=== PATIENT | male | born 1955 | race Caucasian/White ===

== ENCOUNTER 2019-02-04 09:08 | Emergency (ER) | payer OTHER ==
[2019-02-04] MEDS ORDERED: ONDANSETRON 4 MG/2 ML VIAL ONE (09:43)
[2019-02-04] MEDS ORDERED: MORPHINE 4 MG/ML SYR ONE (09:43)
[2019-02-04 09:46] LABS: Absolute Lymphocytes (CBC) 1.4 K/uL (0.7-4.9); Basophils % 0.3 % (0-1.3); Hematocrit 46.5 % (39.6-49.0); Lymphocytes % 17.8 % (15.3-44.8); RBC Red Blood Cell Count 5.19 M/uL (4.33-5.43)
[2019-02-04 10:03] LABS: BUN Blood Urea Nitrogen 14 mg/dL (7-18); Bicarbonate 24 mmol/L (21-32); Glucose Level 118 mg/dL (74-106); Potassium 3.6 mmol/L (3.5-5.1); Sodium Level 140 mmol/L (136-145)
[2019-02-04 10:39] LABS: Urine Blood 3+ (NEG); Urine Glucose NEGATIVE (NEG); Urine Protein 2+ (NEG); Urine Specific Gravity 1.025 (1.005-1.030)
--- NOTE | 2019-02-04 10:58 | RAD REPORT ---
EXAM DESCRIPTION: RAD - Abdomen 1 View (KUB) - 02/04/2019 10:47 am CLINICAL HISTORY: CONSTIPATION Pain COMPARISON: No comparisons FINDINGS: The bowel gas pattern is non-obstructive. No evidence of free air or pneumatosis. No suspi cious calcifications. No significant bony findings. Moderate fecal retention in the colon. IMPRESSION: Moderate constipation.
[2019-02-04] MEDS ORDERED: MAGNESIUM CITRATE 300 ML BOT ONE (11:00)
[2019-02-04 11:05] LABS: Urine Bacteria 20-50 /HPF (NONE SEEN); Urine Culture Reflex Order REFLEXED; Urine RBC 20-50 /HPF (NONE SEEN)
--- NOTE | 2019-02-04 11:15 | ER ---
Nurse's Notes [facility] Name: Salvatore Nguyễn Age: 63 yrs Sex: Male : 1955 Arrival Date: 02/04/2019 Time: 09:11 Bed 14 Private MD: Atla Thompson H Diagnosis: Urinary tract infection, site not specified;Constipation, unspecified Presentation: 02/04 09:26 Presenting complaint: Patient states: bladder/penile pain, feels like I need to urinate ch but I am urinating. bloody spots in urine. sx on bladder Thursday after having bladder Biopsys. Coto in place since Thursday. Transition of care: patient was not received from another setting of care. Onset of symptoms was February 01, 2019. Risk Assessment: Do you want to hurt yourself or someone else? Patient reports no desire to harm self or others. Initial Sepsis Screen: Does the patient meet any 2 criteria? No. Patient's initial sepsis screen is negative. Does the patient have a suspected source of infection? No. Patient's initial sepsis screen is negative. Care prior to arrival: None. 09:26 Method Of Arrival: Ambulatory 09: Acuity: DALE 3 ch Triage Assessment: :29 General: Appears in no apparent distress. uncomfortable, Behavior is anxious, restless. Pain: Complains of pain in groin and suprapubic area Pain currently is 8 out of 10 on a pain scale. Pain began suddenly. Neuro: Level of Consciousness is awake, alert, obeys commands, Oriented to person, place, time, situation. Respiratory: No deficits noted. Airway is patent Respiratory effort is even, unlabored. Historical: - Allergies: 09: NSAIDS; ch 09: Levaquin; 09:29 floroquinolones; ch - Home Meds: 10: Fioricet Oral [Active]; ch - PMHx: 10: Migraines; ch - PSHx: : Appendectomy; sinus; elbow; ch - Immunization history:: Adult Immunizations up to date. - Social history:: Smoking status: Patient/guardian denies using tobacco. - Ebola Screening: : Patient negative for fever greater than or equal to 101.5 degrees Fahrenheit, and additional compatible Ebola Virus Disease symptoms Patient denies exposure to infectious person Patient denies travel to an Ebola-affected area in the 21 days before illness onset No symptoms or risks identified at this time. Screenin:55 Abuse screen: Denies threats or abuse. Denies injuries from another. Nutritional ch screening: No deficits noted. Tuberculosis screening: No symptoms or risk factors identified. Fall Risk None identified. Assessment: 09:55 General: Appears in no apparent distress. uncomfortable, ill, Behavior is cooperative, ch appropriate for age, anxious, restless. Pain: Complains of pain in suprapubic area and groin Pain currently is 4 out of 10 on a pain scale. Neuro: No deficits noted. Respiratory: No deficits noted. Airway is patent Trachea midline Respiratory effort is even, unlabored. GI: No signs and/or symptoms were reported involving the gastrointestinal system. : 3-way catheter in place to gravity drainage Urine is clear, pt urine is green Genitalia appear normal pt has tenderness to bladder area. Derm: Skin is pink, warm \T\ dry. Musculoskeletal: No signs and/or symptoms reported regarding the musculoskeletal system. 10:32 Reassessment: Patient appears in no apparent distress at this time. Patient and/or family updated on plan of care and expected duration. Pain level reassessed. Patient is alert, oriented x 3, equal unlabored respirations, skin warm/dry/pink. Patient states feeling better. Patient states symptoms have improved. 11:31 Reassessment: Patient appears in no apparent distress at this time. No changes from previously documented assessment. Patient and/or family updated on plan of care and expected duration. Pain level reassessed. Patient is alert, oriented x 3, equal unlabored respirations, skin warm/dry/pink. Vital Signs: 09:29 BP 162 / 102; Pulse 84; Resp 18; Temp 98.4(O); Pulse Ox 99% on R/A; Weight 77.11 kg; Height 5 ft. 10 in. (177.80 cm); Pain 8/10; 10:32 BP 172 / 104; Pulse 75; Resp 16; Pulse Ox 100% on R/A; Pain 4/10; ch 11:15 BP 139 / 93; Pulse 72; Resp 18; Pulse Ox 100% on R/A; Pain 4/10; ch 11:39 BP 141 / 88; Pulse 75; Resp 18; Temp 98.8; Pulse Ox 99% on R/A; Pain 4/10; ch 09:29 Body Mass Index 24.39 (77.11 kg, 177.80 cm) ED Course: 09:11 Patient arrived in ED. ag5 09:12 Alta Thompson DO is Private Physician. ag5 09:20 [facility]C [facility] kb 09:20 Kit Borden MD is Attending Physician. kb 09:26 Xenia Cheema, SONG is Primary Nurse. ch 09:28 Triage completed. ch 09:29 Arm band placed on left wrist. Patient placed in an exam room, on a stretcher, on pulse ch oximetry. 09:30 No provider procedures requiring assistance completed. Inserted saline lock: 18 gauge ch in right forearm, using aseptic technique. Blood collected. 09:30 Initial lab(s) drawn, by ga, sent to lab. Urine collected: Coto catheter specimen, ch clear, urine drawn from port at end of coto. not taken from bag. pt urine is green. provider notified. no new orders. 09:55 Patient has correct armband on for positive identification. Placed in gown. Bed in low ch position. Call light in reach. Side rails up X 1. Adult w/ patient. Pulse ox on. NIBP on. Door closed. Noise minimized. Lights dimmed. Warm blanket given. Verbal reassurance given. 10:32 No apparent distress. Resting quietly. ch 10:47 Abdomen 1 View (KUB) XRAY In Process Unspecified. EDMS 11:15 Susanna Vogel MD is Referral Physician. kb 11:39 IV discontinued, intact, bleeding controlled, No redness/swelling at site. Pressure ch dressing applied. Administered Medications: 10:03 Drug: Zofran 4 mg Route: IVP; Site: right forearm; ch 11:15 Follow up: Response: No adverse reaction ch 10:04 Drug: morphine 4 mg Route: IVP; Site: right forearm; ch 11:15 Follow up: Response: No adverse reaction; Pain is decreased ch 11:10 Drug: Magnesium Citrate Liquid 300 ml Route: PO; ch 11:30 Follow up: Response: No adverse reaction; No change in condition ch 11:20 Drug: Rocephin 1 grams Route: IV; Rate: calculated rate; Site: right forearm; 11:41 Follow up: IV Status: Completed infusion; IV Intake: 10ml 11:20 Drug: [place] (7.5 mg-325 mg) 1 tabs Route: PO; 11:41 Follow up: Response: No adverse reaction; Medication administered at discharge. Intake: 11:41 IV: 10ml; Total: 10ml. Outcome: 11:15 Discharge ordered by . kb 11:39 Discharged to home via wheelchair, with family. 11:39 Condition: stable 11:39 Discharge instructions given to patient, family, Instructed on discharge instructions, follow up and referral plans. medication usage, Demonstrated understanding of instructions, follow-up care, medications, Prescriptions given X 1. 11:45 Patient left the ED. Signatures: Dispatcher [employer] Whitney Fischer, SUMMER [employer]DE[employer]-Xenia Duke, RN RN Eriberto Jurado ag5
--- NOTE | 2019-02-04 11:15 | EDPHYS ---
Physician Documentation [facility] Name: Salvatore Nguyễn Age: 63 yrs Sex: Male : 1955 Arrival Date: 02/04/2019 Time: 09:11 Bed 14 Private MD: Alta Thompson H ED Physician Kit Borden HPI: 02/04 10:26 This 63 yrs old Male presents to ER via Ambulatory with complaints of General kb Weakness, Urinary Problem. 10:26 The patient presents with a Coto catheter problem, pain to penis due to coto kb catheter. Onset: The symptoms/episode began/occurred 3 day(s) ago. Modifying factors: The symptoms are alleviated by nothing, the symptoms are aggravated by nothing. Associated signs and symptoms: Pertinent positives: abdominal pain, constipation, Pertinent negatives: diarrhea, dysuria, fever, hematuria, nausea, vomiting. Severity of symptoms: At their worst the symptoms were moderate, in the emergency department the symptoms are unchanged. The patient has not experienced similar symptoms in the past. The patient has not recently seen a physician. Pt reports he had bladder and prostate biopsies taken on Thursday. States he continued to bleed in post op so he had to go back into surgery to have cauterization done. Went home with coto and has follow up with DR Vogel on Thursday. States he has had penile pain since procedure was done and constipation for 3 days. Requests catheter be removed. Called Dr Vogel's office and was instructed to come to ER. Historical: - Allergies: 09:29 NSAIDS; ch 09:29 Levaquin; ch 09:29 floroquinolones; ch - Home Meds: 10:01 Fioricet Oral [Active]; ch - PMHx: 10:01 Migraines; ch - PSHx: 09:29 Appendectomy; sinus; elbow; ch - Immunization history:: Adult Immunizations up to date. - Social history:: Smoking status: Patient/guardian denies using tobacco. - Ebola Screening: : Patient negative for fever greater than or equal to 101.5 degrees Fahrenheit, and additional compatible Ebola Virus Disease symptoms Patient denies exposure to infectious person Patient denies travel to an Ebola-affected area in the 21 days before illness onset No symptoms or risks identified at this time. ROS: 10:32 Constitutional: Negative for fever, chills, and weight loss, Cardiovascular: Negative kb for chest pain, palpitations, and edema, Respiratory: Negative for shortness of breath, cough, wheezing, and pleuritic chest pain, Back: Negative for injury and pain, MS/Extremity: Negative for injury and deformity, Skin: Negative for injury, rash, and discoloration, Neuro: Negative for headache, weakness, numbness, tingling, and seizure. 10:32 Abdomen/GI: Positive for abdominal pain, nausea, constipation. 10:32 : Positive for penile pain. Exam: 10:18 Constitutional: This is a well developed, well nourished patient who is awake, alert, kb and in no acute distress. Head/Face: Normocephalic, atraumatic. Neck: Trachea midline, no thyromegaly or masses palpated, and no cervical lymphadenopathy. Supple, full range of motion without nuchal rigidity, or vertebral point tenderness. No Meningismus. Chest/axilla: Normal chest wall appearance and motion. Nontender with no deformity. No lesions are appreciated. Cardiovascular: Regular rate and rhythm with a normal S1 and S2. No gallops, murmurs, or rubs. Normal PMI, no JVD. No pulse deficits. Respiratory: Lungs have equal breath sounds bilaterally, clear to auscultation and percussion. No rales, rhonchi or wheezes noted. No increased work of breathing, no retractions or nasal flaring. Back: No spinal tenderness. No costovertebral tenderness. Full range of motion. Skin: Warm, dry with normal turgor. Normal color with no rashes, no lesions, and no evidence of cellulitis. MS/ Extremity: Pulses equal, no cyanosis. Neurovascular intact. Full, normal range of motion. Neuro: Awake and alert, GCS 15, oriented to person, place, time, and situation. Cranial nerves II-XII grossly intact. Motor strength 5/5 in all extremities. Sensory grossly intact. Cerebellar exam normal. Normal gait. 10:18 Abdomen/GI: Inspection: abdomen appears normal, Bowel sounds: normal, in all quadrants, Palpation: soft, in all quadrants, mild abdominal tenderness, in all quadrants. 10:18 : a coto is noted, to gravity drainage, urine is clear. Vital Signs: 09:29 BP 162 / 102; Pulse 84; Resp 18; Temp 98.4(O); Pulse Ox 99% on R/A; Weight 77.11 kg; ch Height 5 ft. 10 in. (177.80 cm); Pain 8/10; 10:32 BP 172 / 104; Pulse 75; Resp 16; Pulse Ox 100% on R/A; Pain 4/10; ch 11:15 BP 139 / 93; Pulse 72; Resp 18; Pulse Ox 100% on R/A; Pain 4/10; ch 11:39 BP 141 / 88; Pulse 75; Resp 18; Temp 98.8; Pulse Ox 99% on R/A; Pain 4/10; ch 09:29 Body Mass Index 24.39 (77.11 kg, 177.80 cm) ch MDM: 09:20 Patient medically screened. kb 10:18 Data reviewed: vital signs, nurses notes. Data interpreted: Pulse oximetry: on room air kb is 99 %. Interpretation: normal. 10:20 Physician consultation: Susanna Vogel MD was contacted at 09:49, regarding consult, kb patient's condition, and will see patient in office, next week, Dr Vogel does not want coto catheter removed. PT has appt on Thursday and coto will be discontinued at that time as planned. 11:09 Counseling: I had a detailed discussion with the patient and/or guardian regarding: the kb historical points, exam findings, and any diagnostic results supporting the discharge/admit diagnosis, lab results, radiology results, the need for outpatient follow up, a urologist, to return to the emergency department if symptoms worsen or persist or if there are any questions or concerns that arise at home. 02/04 09:36 Order name: CBC with Diff kb 02/04 09:36 Order name: Basic Metabolic Panel; Complete Time: 10:15 kb 02/04 09:37 Order name: CBC with Automated Diff; Complete Time: 09:49 EDMS 02/04 10:00 Order name: Urine Dipstick--Ancillary (enter results); Complete Time: 10:55 eb 02/04 10:00 Order name: Urine Microscopic Only; Complete Time: 11:07 kb 02/04 11:06 Order name: Urine Culture EDMS 02/04 09:36 Order name: IV Start; Complete Time: 10:04 kb 02/04 09:42 Order name: Urine Dipstick-Ancillary (obtain specimen); Complete Time: 10:04 kb 02/04 10:15 Order name: Abdomen 1 View (KUB) XRAY; Complete Time: 11:01 kb Administered Medications: 10:03 Drug: Zofran 4 mg Route: IVP; Site: right forearm; ch 11:15 Follow up: Response: No adverse reaction 10:04 Drug: morphine 4 mg Route: IVP; Site: right forearm; 11:15 Follow up: Response: No adverse reaction; Pain is decreased ch 11:10 Drug: Magnesium Citrate Liquid 300 ml Route: PO; ch 11:30 Follow up: Response: No adverse reaction; No change in condition ch 11:20 Drug: Rocephin 1 grams Route: IV; Rate: calculated rate; Site: right forearm; ch 11:41 Follow up: IV Status: Completed infusion; IV Intake: 10ml 11:20 Drug: [place] (7.5 mg-325 mg) 1 tabs Route: PO; 11:41 Follow up: Response: No adverse reaction; Medication administered at discharge. Disposition: 13:03 Co-signature as Attending Physician, Kit Borden MD I agree with the assessment and kdr plan of care. Disposition: 02/04/19 11:15 Discharged to Home. Impression: Urinary tract infection, site not specified, Constipation, unspecified. - Condition is Stable. - Discharge Instructions: Constipation, Adult, [id number], Urinary Tract Infection, Adult, [id number], Coto Catheter Care, Adult, [id number]. - Prescriptions for Macrobid 100 mg Oral Capsule - take 1 capsule by ORAL route every 12 hours for 3 days; 6 capsule. - Medication Reconciliation Form, Thank You Letter, Antibiotic Education, Prescription Opioid Use form. - Follow up: Emergency Department; When: As needed; Reason: Worsening of condition. Follow up: Susanna Vogel MD; When: 2 - 3 days; Reason: Recheck today's complaints, Continuance of care, Re-evaluation by your physician. Signatures: Dispatcher [employer] Whitney Fischer FNP-C FNP-Ckb Hammond, Christina RN RN Kit Borden MD MD [facility] Corrections: (The following items were deleted from the chart) 11:15 11:15 02/04/2019 11:15 Discharged to Home. Impression: Urinary tract infection, site kb not specified. Condition is Stable. Forms are Medication Reconciliation Form, Thank You Letter, Antibiotic Education, Prescription Opioid Use. Follow up: Emergency Department; When: As needed; Reason: Worsening of condition. Follow up: Susanna Vogel; When: 2 - 3 days; Reason: Recheck today's complaints, Continuance of care, Re-evaluation by your physician. kb 11:45 11:15 02/04/2019 11:15 Discharged to Home. Impression: Urinary tract infection, site ch not specified; Constipation, unspecified. Condition is Stable. Discharge Instructions: Urinary Tract Infection, Adult, [id number], Coto Catheter Care, Adult, [id number]-[id number]. Prescriptions for Macrobid 100 mg Oral Capsule - take 1 capsule by ORAL route every 12 hours for 3 days; 6 capsule. and Forms are Medication Reconciliation Form, Thank You Letter, Antibiotic Education, Prescription Opioid Use. Follow up: Emergency Department; When: As needed; Reason: Worsening of condition. Follow up: Susanna Vogel; When: 2 - 3 days; Reason: Recheck today's complaints, Continuance of care, Re-evaluation by your physician. kb
[2019-02-04] MEDS ORDERED: HYDROCODONE/APAP 7.5/325 MG TAB ONE (11:22)
[2019-02-04] MEDS ORDERED: CEFTRIAXONE/SWI 1gm 1 GM/10 ML SYR ONE (11:23)
[2019-02-04 11:54] VITALS: BP 141/88; TEMP 98.8; O2SAT 99
== END 2019-02-04 11:45 | disposition home or self-care (01) ==
LOC: ER 09:08
DX: N39.0 Urinary tract infection, site not specified (principal); K59.00 Constipation, unspecified; Z88.1 Allergy status to other antibiotic agents; Z88.6 Allergy status to analgesic agent; Z88.8 Allergy status to other drugs, medicaments and biological substances
CPT/HCPCS: 96365; 87088; 85025; 80048; 36415; 74018; 96375; 99284; J0696; J2405; 81003; 81015; 87086

== ENCOUNTER 2019-11-27 10:59 | Emergency (ER) | payer OTHER ==
--- NOTE | 2019-11-27 12:32 | RAD REPORT ---
EXAM DESCRIPTION: RAD - Ankle Left 3 View -11/27/2019 11:58 am CLINICAL HISTORY: Left ankle pain status post injury FINDINGS: No fracture or dislocation is seen. Marked lateral soft tissue swelling. Joint effusion is present
--- NOTE | 2019-11-27 12:53 | ER ---
Nurse's Notes [facility] Name: Salvatore Nguyễn Age: 64 yrs Sex: Male : 1955 Arrival Date: 11/27/2019 Time: 11:01 Bed 8 Private MD: Diagnosis: Pain in left ankle and joints of left foot Presentation: 11/26 11:29 Chief complaint: Rolled left ankle while stepping off ice chest 45 mis [employer], c/o left hb ankle pain /. Coronavirus screen: At this time, the client does not indicate any symptoms associated with coronavirus-19. Ebola Screen: No symptoms or risks identified at this time. Initial Sepsis Screen: Does the patient meet any 2 criteria? No. Patient's initial sepsis screen is negative. Does the patient have a suspected source of infection? No. Patient's initial sepsis screen is negative. Risk Assessment: Do you want to hurt yourself or someone else? Patient reports no desire to harm self or others. Onset of symptoms was November 27, 2019. 11:29 Method Of Arrival: Wheelchair hb 11:29 Acuity: DALE 4 hb Historical: - Allergies: 11:31 floroquinolones; hb 11:31 Levaquin; hb 11:31 NSAIDS; hb 11:31 Aspirin; hb - Home Meds: 11:31 Fioricet Oral [Active]; hb - PMHx: 11:31 Migraines; hb - PSHx: 11:31 Appendectomy; sinus; elbow; hb 11:31 TURP; hb - Immunization history:: Adult Immunizations up to date. - Social history:: Smoking status: Patient denies any tobacco usage or history of. Screenin:32 Abuse screen: Denies threats or abuse. Nutritional screening: No deficits noted. tw2 Tuberculosis screening: No symptoms or risk factors identified. Fall Risk None identified. Assessment: 11:38 General: Appears in no apparent distress. Behavior is calm, cooperative, appropriate tw2 for age. Pain: Complains of pain in left lateral ankle. Neuro: Level of Consciousness is awake, alert, obeys commands, Oriented to person, place, time, situation. Cardiovascular: Capillary refill < 3 seconds Patient's skin is warm and dry. Respiratory: Airway is patent Respiratory effort is even, unlabored, Respiratory pattern is regular, symmetrical. GI: No signs and/or symptoms were reported involving the gastrointestinal system. : No signs and/or symptoms were reported regarding the genitourinary system. EENT: No signs and/or symptoms were reported regarding the EENT system. Derm: No signs and/or symptoms reported regarding the dermatologic system. Musculoskeletal: Circulation, motion, and sensation intact. Range of motion: intact in all extremities, Swelling present in left lateral ankle. 11:40 Reassessment: provider at bedside at this time. tw2 12:40 Reassessment: Patient appears in no apparent distress at this time. No changes from tw2 previously documented assessment. Patient and/or family updated on plan of care and expected duration. Pain level reassessed. Patient is alert, oriented x 3, equal unlabored respirations, skin warm/dry/pink. 13:37 Reassessment: Patient appears in no apparent distress at this time. No changes from tw2 previously documented assessment. Patient and/or family updated on plan of care and expected duration. Pain level reassessed. Patient is alert, oriented x 3, equal unlabored respirations, skin warm/dry/pink. Vital Signs: 11:29 BP 133 / 73; Pulse 51; Resp 16; Temp 97.3; Pulse Ox 100% on R/A; Weight 68.04 kg; hb Height 5 ft. 7 in. (170.18 cm); Pain 6/10; 13:38 BP 128 / 69; Pulse 58; Resp 17; Pulse Ox 99% on R/A; tw2 11:29 Body Mass Index 23.49 (68.04 kg, 170.18 cm) hb ED Course: 11:01 Patient arrived in ED. ds1 11:31 Triage completed. hb 11:31 Arm band placed on. hb 11:32 Leonarda Thomas, RN is Primary Nurse. tw2 11:32 Bed in low position. Call light in reach. tw2 11:35 Carlos Sellers NP is PHCP. pm1 11:35 Rakan Love MD is Attending Physician. pm1 11:59 Ankle Left 3 View XRAY In Process Unspecified. EDMS 13:36 No provider procedures requiring assistance completed. Patient did not have IV access tw2 during this emergency room visit. Administered Medications: 13:04 Drug: Ondansetron (Zofran) 4 mg Route: PO; ph 13:39 Follow up: Response: No adverse reaction tw2 13:05 Drug: morphine 4 mg Route: IM; Site: right deltoid; ph 13:30 Follow up: Response: No adverse reaction; Pain is decreased; RASS: Alert and Calm (0) tw2 Outcome: 12:53 Discharge ordered by . pm1 13:36 Discharged to home via wheelchair. tw2 13:36 Condition: stable 13:36 Discharge instructions given to patient, Instructed on discharge instructions, follow up and referral plans. no drinking with medication, no driving heavy equipment, medication usage, safety practices, crutch walking, Demonstrated understanding of instructions, follow-up care, medications, crutch walking, splint care, Prescriptions given X 1. 13:38 Patient left the ED. tw2 Signatures: Dispatcher [employer] EDAL Yessi Okeefe ds1 Vandana Rodriguez, RN RN Carlos Acuna NP [employer] DEVELOPER pm1 Brisa Briceño RN RN Leonarda Thomas RN RN tw2
--- NOTE | 2019-11-27 12:53 | EDPHYS ---
Physician Documentation [facility] Name: Salvatore Nguyễn Age: 64 yrs Sex: Male : 1955 Arrival Date: 11/27/2019 Time: 11:01 Bed 8 Private MD: ED Physician Rakan Love HPI: 11/26 11:43 This 64 yrs old Male presents to ER via Wheelchair with complaints of Ankle pm1 Injury. 11:43 The patient presents with pain. The complaints affect the left ankle. Onset: The pm1 symptoms/episode began/occurred today. Context: The problem was sustained outdoors, resulted from the patient tripping, The mechanism of injury involved inversion of the affected ankle. Associated signs and symptoms: Pertinent positives: swelling, Pertinent negatives: calf tenderness, fever, numbness, tingling. Modifying factors: The symptoms are alleviated by elevation of extremity, the symptoms are aggravated by weight bearing. Severity of symptoms: in the emergency department the symptoms are unchanged. The patient has not experienced similar symptoms in the past. Patient was standing on a cooler to put kayak onto hi car. The cooler rolled out from under him and his left ankle rolled too. No head injury, headache, neck pain, LOC. Historical: - Allergies: 11:31 floroquinolones; hb 11:31 Levaquin; hb 11:31 NSAIDS; hb 11:31 Aspirin; hb - Home Meds: 11:31 Fioricet Oral [Active]; hb - PMHx: 11:31 Migraines; hb - PSHx: 11:31 Appendectomy; sinus; elbow; hb 11:31 TURP; hb - Immunization history:: Adult Immunizations up to date. - Social history:: Smoking status: Patient denies any tobacco usage or history of. ROS: 11:43 Constitutional: Negative for fever, chills, and weight loss, Cardiovascular: Negative pm1 for chest pain, palpitations, and edema, Respiratory: Negative for shortness of breath, cough, wheezing, and pleuritic chest pain, Back: Negative for injury and pain. 11:43 Skin: Negative for injury, rash, and discoloration, Neuro: Negative for headache, weakness, numbness, tingling, and seizure. 11:43 MS/extremity: Positive for pain, swelling, tenderness, of the left lateral ankle, Negative for decreased range of motion, deformity. Exam: 11:43 Constitutional: This is a well developed, well nourished patient who is awake, alert, pm1 and in no acute distress. Head/Face: Normocephalic, atraumatic. Chest/axilla: Normal chest wall appearance and motion. Nontender with no deformity. No lesions are appreciated. Respiratory: Lungs have equal breath sounds bilaterally, clear to auscultation and percussion. No rales, rhonchi or wheezes noted. No increased work of breathing, no retractions or nasal flaring. Abdomen/GI: Soft, non-tender, with normal bowel sounds. No distension or tympany. No guarding or rebound. No evidence of tenderness throughout. Back: No spinal tenderness. No costovertebral tenderness. Full range of motion. 11:43 Cardiovascular: Exam negative for acute changes, Rate: normal, Rhythm: regular, Pulses: no pulse deficits are appreciated. 11:43 Musculoskeletal/extremity: Extremities: grossly normal except: noted in the left lateral ankle: swelling, tenderness, There is no evidence of decreased ROM, deformity. Vital Signs: 11:29 BP 133 / 73; Pulse 51; Resp 16; Temp 97.3; Pulse Ox 100% on R/A; Weight 68.04 kg; hb Height 5 ft. 7 in. (170.18 cm); Pain 6/10; 13:38 BP 128 / 69; Pulse 58; Resp 17; Pulse Ox 99% on R/A; tw2 11:29 Body Mass Index 23.49 (68.04 kg, 170.18 cm) hb Procedures: 13:16 Splinting: Splint applied to left ankle using Orthoglass splint, applied by tech. pm1 Examined by me, post splint application: neurovascular intact, 2+ distal pulses palpable, brisk capillary refill noted, Patient tolerated well, Assisted Tech with adding posterior splint to stirrup. Patient reported improvement in support and comfort. MDM: 11:35 Patient medically screened. pm1 11:43 ED course: Patient refused pain medications. pm1 12:52 Data reviewed: vital signs. Data interpreted: Pulse oximetry: on room air is 100 %. pm1 Interpretation: normal. Counseling: I had a detailed discussion with the patient and/or guardian regarding: the historical points, exam findings, and any diagnostic results supporting the discharge/admit diagnosis, the need for outpatient follow up, to return to the emergency department if symptoms worsen or persist or if there are any questions or concerns that arise at home. 12:52 ED course: Patient would like to have pain medications now. pm1 11/26 11:42 Order name: Ankle Left 3 View XRAY; Complete Time: 12:43 pm1 11/26 12:09 Order name: Crutches; Complete Time: 12:57 pm1 11/26 12:09 Order name: Splint - Ankle: Orthoglass: Stirrup; Complete Time: 12:56 pm1 Administered Medications: 13:04 Drug: Ondansetron (Zofran) 4 mg Route: PO; ph 13:39 Follow up: Response: No adverse reaction tw2 13:05 Drug: morphine 4 mg Route: IM; Site: right deltoid; ph 13:30 Follow up: Response: No adverse reaction; Pain is decreased; RASS: Alert and Calm (0) tw2 Disposition: 18:21 Co-signature as Attending Physician, Rakan Love MD. ma2 Disposition: 11/27/19 12:53 Discharged to Home. Impression: Pain in left ankle and joints of left foot. - Condition is Stable. - Discharge Instructions: Ankle Sprain, Cast or Splint Care, Adult, Crutch Use, Ankle Pain. - Prescriptions for Tylenol- Codeine #3 300-30 mg Oral Tablet - take 2 tablets by ORAL route every 6 hours As needed; 20 tablet. - Medication Reconciliation Form, Thank You Letter, Antibiotic Education, Prescription Opioid Use form. - Follow up: Emergency Department; When: As needed; Reason: Worsening of condition. Follow up: Private Physician; When: 2 - 3 days; Reason: Recheck today's complaints, Continuance of care, Re-evaluation by your physician. - Problem is new. - Symptoms have improved. Signatures: Dispatcher [employer] EDMS Vandana Rodriguez RN RN ph Carlos Sellers, [employer]ER pm1 Brisa Briceño RN RN Leonarda Thomas RN RN tw2 Rakan Love MD MD ma2 Corrections: (The following items were deleted from the chart) 13:38 12:53 11/27/2019 12:53 Discharged to Home. Impression: Pain in left ankle and joints of tw2 left foot. Condition is Stable. Forms are Medication Reconciliation Form, Thank You Letter, Antibiotic Education, Prescription Opioid Use. Follow up: Emergency Department; When: As needed; Reason: Worsening of condition. Follow up: Private Physician; When: 2 - 3 days; Reason: Recheck today's complaints, Continuance of care, Re-evaluation by your physician. Problem is new. Symptoms have improved. pm1
[2019-11-27] MEDS ORDERED: ONDANSETRON 4 MG (ODT) TAB ONE (13:09)
[2019-11-27] MEDS ORDERED: MORPHINE 4 MG/ML SYR ONE (13:09)
[2019-11-27 13:42] VITALS: TEMP 97.3
[2019-11-27 13:43] VITALS: BP 128/69; O2SAT 99
== END 2019-11-27 13:38 | disposition home or self-care (01) ==
LOC: ER 10:59
DX: M25.572 Pain in left ankle and joints of left foot (principal); Z88.1 Allergy status to other antibiotic agents; Z88.5 Allergy status to narcotic agent; Z88.6 Allergy status to analgesic agent
CPT/HCPCS: 96372; 99284